=== PATIENT | female | born 1970 | race Caucasian/White ===

== ENCOUNTER 2020-11-02 19:19 | Emergency (ER) | payer OTHER, SELFPAY ==
[2020-11-02 19:20] VITALS: BP 120/86; PULSE 74; RESP 18; TEMP 37.3; O2SAT 97; BMI 24.3
--- NOTE | 2020-11-02 19:38 | RAD_ITS ---
INDICATION: injury EXAMINATION/TECHNIQUE: X-RAY - LEFT XR Knee Complete 4 Views or More 4 VIEWS COMPARISON: None. FINDINGS: SOFT TISSUES: No soft tissue swelling or gas. No joint effusion. BONES/JOINTS: No acute fracture or subluxation.. Normal alignment. Preservation of the joint space.. No sclerotic or destructive changes observed. RAD/Knee 4 or More Views IMPRESSION: Negative. Electronically Signed: Roge Cortes DO at 20:53 EDT Tel , Service support ,
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
[2020-11-02] MEDS: Ibuprofen 600 MG Tablet PO (20:08)
== END 2020-11-02 20:36 | disposition home or self-care (01) ==
PROVIDERS: Emergency Provider Emergency Medicine
DX: S83.92XA Sprain of unspecified site of left knee, initial encounter (principal); W03.XXXA Other fall on same level due to collision with another person, initial encounter; Y93.16 Activity, rowing, canoeing, kayaking, rafting and tubing; Y92.89 Other specified places as the place of occurrence of the external cause; Y99.8 Other external cause status; Z79.1 Long term (current) use of non-steroidal anti-inflammatories (NSAID)
CPT/HCPCS: 73564; 99284